=== PATIENT | male | born 1985 | race Two or more races ===

== ENCOUNTER → 2020-04-27 | Outpatient (CLI) | payer SELFPAY | LOC: M LABSMTC 19:12 | PROVIDERS: ATTEND Pediatrics | DX: Z11.59 Encounter for screening for other viral diseases (principal) ==

== ENCOUNTER 2021-02-22 15:06 | Outpatient (RCR) | payer BC | END 2021-03-21 | LOC: M PT 15:06 | PROVIDERS: ATTEND Physician Assistant | DX: M25.559 Pain in unspecified hip (principal) ==